=== PATIENT | female | born 1950 | race Caucasian/White ===

== ENCOUNTER → 2017-02-02 | Outpatient (CLI) | payer MEDICARE ==
--- NOTE | 2017-02-03 11:10 | RADIOLOGY REPORT PS360 ---
DIG MAMM-SCREEN SHANEL W/CAD CAD Screening ORDERING PHYSICIAN : Loy Louis MD PATIENT AGE: 67 years GENDER: Female COMPARISON: Previous mammograms: INDICATION: Routine screening TECHNIQUE: Standard CC and MLO images were obtained. R2 CAD reviewed. FINDINGS: Dense inhomogeneous breast. Decreased sensitivity mammography. Dense tissue is seen superior breast bilaterally particularly right breast. RIGHT BREAST: More pronounced dense nodular tissue at the superior right breast. Slightly ovoid area density/nodular density measuring up to 14 mm at superior right breast, noted on MLO view. Labeled A. Although similar feature on prior prior studies but slightly more evident today. Would benefit from ultrasound in this dense breast Also on cc view there is area of density which appears stable since 2012, labeled B. This would also benefit from ultrasound LEFT BREAST: Dense tissue left retroareolar region has decreased. No new findings left breast but is quite dense. Given the density of this breastI, would suggest ultrasound of the left breast as well the patient return is ultrasound is been shown to be a useful augment/ compliment to mammography as a screening tool breast of increased density. tt under. Follow-up in one year on left adequate IMPRESSION: ...........Additional imaging Dense breast bilaterally which decreases sensitivity mammography \ . RIGHT BREAST. Nodular areas of density at the upper outer quadrant. Although these may be similar to prior studies these areas labeled A & B stand out slightly more so today-. Would benefit from ultrasound & spot views right breast to further evaluate Left breast. Dense inhomogeneous breast. Most likely stable on with no focal area of concern but given the breast density would suggest including left breast ultrasound survey with the patient returns as well. . Ultrasound is been shown to be useful compliment to mammography in dense breasts. BI-RADS CATEGORY: 0_Incomplete: Need additional imaging RECOMMENDED FOLLOWUP: USB ULTRASOUND-BREAST . spot views RIGHT breast at A & B. Bilateral breast ultrasound (A letter has been sent to the patient regarding results of the study.)
== END ==
LOC: RAD 10:18
DX: Z12.31 Encounter for screening mammogram for malignant neoplasm of breast (principal)
CPT/HCPCS: G0202

== ENCOUNTER → 2017-02-16 | Outpatient (CLI) | payer MEDICARE | LOC: RAD 13:32 | DX: R92.8 Other abnormal and inconclusive findings on diagnostic imaging of breast (principal) | CPT/HCPCS: G0206-RT ==